=== PATIENT | female | born 2000 | race Caucasian/White ===

== ENCOUNTER 2024-08-21 19:38 | Emergency (ER) | payer MEDICARE ==
[~2024-08-21] VITALS: Ht 149.9 cm; Wt 96.4 kg
[2024-08-21 19:40] VITALS: TEMP 97.3
[2024-08-21 20:46] LABS: BASO % 0.3 % (0.0-1.0); EOS # 0.1 10^3/uL (0.0-0.5); EOS % 0.7 % (0.0-3.0); HEMATOCRIT 37.5 % (36.0-47.0); HEMOGLOBIN 12.6 g/dl (12.0-15.5); LYMPH # 2.7 10^3/uL (1.5-5.0); LYMPH % 26.7 % (24.0-44.0); MEAN CORPUSCULAR HEMOGLOBIN 29.6 pg (27.0-33.0); MEAN CORPUSCULAR HGB CONC 33.6 g/dl (32.0-36.5); MONO # 0.6 10^3/uL (0.0-0.8); MONO % 5.5 % (2.0-8.0); NEUTROPHILS # 6.7 10^3/uL (1.5-8.5); NEUTROPHILS % 66.5 % (36.0-66.0); PLATELET COUNT, AUTOMATED 373 10^3/uL (150-450); RED BLOOD COUNT 4.26 10^6/uL (4.00-5.40); WHITE BLOOD COUNT 10.1 10^3/uL (4.0-10.0)
[2024-08-21] MEDS ORDERED: ISOVUE-370 76% 100ML VIAL As Ordered ONE (20:58)
[2024-08-21 21:23] LABS: ALBUMIN 3.7 G/DL (3.2-5.2); BILIRUBIN,DIRECT 0.1 MG/DL (<0.4); BILIRUBIN,TOTAL 0.4 MG/DL (0.3-1.2); TOTAL PROTEIN 7.4 G/DL (5.7-8.2)
[2024-08-21] MEDS ORDERED: COLA100C5 PO (21:45)
[2024-08-21] MEDS ORDERED: MAGNESIUM CITRATE 300ML BTL PO ONE (21:50)
[2024-08-21 21:51] VITALS: BP 127/76; O2SAT 99
== END 2024-08-21 21:51 | disposition home or self-care (01) ==
LOC: M ED 19:38
DX: K59.00 Constipation, unspecified (principal); K42.9 Umbilical hernia without obstruction or gangrene; Z88.5 Allergy status to narcotic agent; Z88.8 Allergy status to other drugs, medicaments and biological substances
CPT/HCPCS: 74018; 74177; 80047; 80076; 85025; 99284; Q9967